=== PATIENT | male | born 1950 | race Caucasian/White ===

== ENCOUNTER 2016-08-06 15:32 | Emergency (ER) | payer OTHER ==
[~2016-08-06] VITALS: Ht 182.9 cm; Wt 122.7 kg
[2016-08-06 15:42] VITALS: TEMP 36.7; Ht 182.9 cm; Wt 122.7 kg
[2016-08-06] MEDS ORDERED: SODIUM CHLORIDE 0.9% 1000ML 1,000 ML IV ONE (16:15)
--- NOTE | 2016-08-06 16:26 | EMERGENCY ROOM VISIT NOTE ---
History First contact with patient: 15:45 Chief Complaint: CARDIAC ASSESSMENT Stated Complaint: CARDIAC History of Present Illness The patient is a 69 year old male who presents to the Emergency Room with complaints of pre-syncope. [facility] He was standing watching the match and after he suddenly felt lightheaded. He denies syncope. He did have to hold himself up. This lasted for 20 minutes. Others around him offered him M&Ms and water, which did not help. He was eventually brought to the ED by ambulance. He denies any chest pain or chest pressure, palpitations, shortness of breath, coughing, orthopnea, PND or lower extremity edema. He denies any neurological symptoms including weakness, vision disturbance, auditory symptoms, dysphasia, aphasias. At his baseline, he has excellent exercise tolerance. He exercises daily and does cardio and weights. He has lost 140 pounds from diet and exercise alone. His tolerance has not changed. He has not had fevers, chills or nightsweats. 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 Physical Exam Vital Signs Date Time Temp Pulse Resp B/P Pulse Ox O2 Delivery O2 Flow Rate FiO2 08/06/16 17:42 74 13 121/60 98 Room Air 84 129/71 87 139/69 08/06/16 16:11 77 08/06/16 15:42 96 Room Air 08/06/16 15:42 36.7 68 21 111/45 97 Room Air Physical Exam Constitutional: Vital signs as above were reviewed. Eyes: Pupils equal, round, and reactive to light. Extraocular muscles are intact. No proptosis. No photophobia. ENT: Mucous membranes are moist. Oropharynx is clear. No sinus tenderness. TMs are clear bilaterally. Cardiovascular: Heart with a regular rate and rhythm. Pulses are palpable and symmetric in all 4 extremities. No pedal edema appreciated. Respiratory: Lungs clear to auscultation bilaterally. No wheezes, rales, or rhonchi appreciated. No accessory muscle use. No retractions. No increased work of breathing. GI: Abdomen soft, nontender, nondistended. Normal active bowel sounds. No abdominal hernias appreciated. No rebound. No guarding. Well healed horizontal laparotomy scar : No CVA tenderness appreciated. Musculoskeletal: No midline cervical or vertebral tenderness. No gross deformities. No bony tenderness. No calf swelling or tenderness. Integumentary: Warm, dry, no rashes appreciated. Neurological: Patient awake, alert, and oriented x 3. Cranial nerves two through 12 grossly intact. Motor 5 out of 5 strength bilateral upper and lower extremities. Lymph: No cervical lymphadenopathy appreciated. Medical Decision & Procedures Laboratory Results 08/06/16 17:22 Test 08/06/16 16:09 08/06/16 17:22 08/06/16 17:30 Creatine Kinase MB Ratio (0-3.0) Red Blood Count 4.36 M/uL (4.7-6.1) Mean Corpuscular Volume 90.4 fL (80-100) Mean Corpuscular Hemoglobin 31.4 pg (25-34) Mean Corpuscular Hemoglobin Concent 34.8 g/dl (32-36) RDW Standard Deviation 41.6 fL (36.4-46.3) RDW Coefficient of Variation 12.6 % (11.5-14.5) Mean Platelet Volume 10.4 fL (7.4-10.4) Bedside Troponin I 0.010 ng/ml (0-0.045) Medications Administered Medications (Trade) Dose Ordered Sig/Laney Route Start Time Stop Time Status Last Admin Dose Admin Sodium Chloride (Nss 1000ml) 1,000 ml @ 999 mls/hr Q1H1M ONCE IV 08/06/16 16:15 08/06/16 17:15 DC 08/06/16 16:16 999 MLS/HR ECG Comparison ECG Date: no prior available Change: NSR Rate 72 No ectopy or pauses No acute ST or T wave changes ED Course 15:50 - Patient seen and evaluated Orders: CBC, BMP, Troponin, CK and CKMB, EKG, 1 L NSS bolus 16:15 - Patient reviewed with Dr. Xiong Ordered orthostatic vital signs 18:00 - Re-assessed patient Patient is feel remarkable better; he is eager to leave BMP still pending Reviewed orthostatic vitals signs: mild increase in HR and decrease in BP but does not meet criteria for true orthostasis. 18:30 - Patient ready for discharge; able to drink fluids; ambulating without symptoms; feeling well Discharged in stable condition. Medical Decision A thorough history was obtained, physical examination performed and the EMR was reviewed. The case was reviewed multiple times over with Dr. Carlitos Xiong during the patient's ED visit. Patient presents with resolving pre-syncope. Possible etiologies include, dehydration, heat stroke, arrhythmia, anxiety, seizures. CBC was within normal limits; BMP was reviewed. There was no biochemical dehydration. EKG was normal without any acute ST or T wave changes. Troponin was negative. I suspect his symptoms are likely related to a combination of mild dehydration and heat in the stadium. He was replenished with 1 L NSS in the ED. He had mild BP reductions but not high enough to qualify for true orthostasis. He was ambulating in the hallway without lightheadedness or dizziness. He was stable on his feet. He is stable to be discharged home. He was advised to continue oral rehydration for the next 24 hours and see his PCP if his symptoms to not improve. Impression Primary Impression: Mild dehydration Additional Impression: Heat collapse Departure Information Dispostion Home / Self-Care Condition GOOD Patient Instructions [facility] Additional Instructions You came to the ED for lightheadedness. We treated you with IV fluids which made you feel much better. You symptoms were likely a combination of mild dehydration long with some heat stroke from being in the high seats in a stadium. We checked labwork. You do not have an infection. Your kidney function is normal. Your EKG is also normal and your heart enzymes are not elevated. When you go home, please continue to orally rehydrate to prevent this from recurring. If your symptoms fail to improve, acutely worsen, please seek medical attention immediately by either calling your primary care provider or going to your nearest emergency department. Otherwise, please see your primary care provider in 3-5 days to ensure that your symptoms continue to improve. It was a pleasure to be involved in your care and we wish you all the best. Problem Qualifiers
[2016-08-06 17:30] LABS: HEMATOCRIT 39.4 % (42-52); MEAN CELL VOLUME 90.4 fL (80-100); MEAN CORPUSCULAR HEMOGLOBIN 31.4 pg (25-34); MEAN CORPUSCULAR HGB CONC 34.8 g/dl (32-36); MEAN PLATELET VOLUME 10.4 fL (7.4-10.4); PLATELET COUNT 152 K/uL (130-400); RED BLOOD COUNT 4.36 M/uL (4.7-6.1); WHITE BLOOD COUNT 8.66 K/uL (4.8-10.8)
[2016-08-06 18:19] LABS: BUN/CREATININE RATIO 24.3 (10-20); CALCIUM 8.4 mg/dl (8.5-10.1); CREATININE 0.88 mg/dl (0.60-1.40)
[2016-08-06 18:27] LABS: POTASSIUM 4.4 mmol/L (3.5-5.1)
[2016-08-06] MEDS ORDERED: ASPI81TA28 PO (18:29)
[2016-08-06] MEDS ORDERED: ZNTT/150 PO (18:29)
[2016-08-06] MEDS ORDERED: LISI-461 PO (18:29)
[2016-08-06] MEDS ORDERED: CRS/10 PO (18:29)
[2016-08-06 18:35] LABS: CKMB/CK RATIO 2.5 (0-3.0)
[2016-08-06 18:39] VITALS: BP 124/77; PULSE 74; O2SAT 98
--- NOTE | 2016-08-06 18:39 | EMERGENCY ROOM VISIT NOTE ---
ED Visit Note First contact with patient: 15:45 Resident Physician Supervision Note: I interviewed and examined the patient. Discussed with Dr. Mcgrath and agree with findings and plan as documented in the note. Any exceptions or clarifications are listed here: [None] Documented By: Carlitos Xiong
== END 2016-08-06 18:40 | disposition home or self-care (01) ==
LOC: EDBD 15:32 → C.EDC 15:35
DX: E86.0 Dehydration (principal); T67.1XXA Heat syncope, initial encounter; X58.XXXA Exposure to other specified factors, initial encounter; Y92.39 Other specified sports and athletic area as the place of occurrence of the external cause; Z87.891 Personal history of nicotine dependence